=== PATIENT | female | born 1940 | race Caucasian/White ===

== ENCOUNTER 2018-01-15 09:57 | Observation (INO) | payer MEDICARE ==
[~2018-01-15] VITALS: Ht 157.5 cm; Wt 93.0 kg
[~2018-01-15 09:57] MED LIST: GLIMEPIRIDE2 MG PO; LANTUS100 UNITS/ SQ; LISINOPRIL10 MG PO; METOPROLOL SUCC25 MG PO; SYNTHROID112 MCG PO
[2018-01-15 18:12] VITALS: BP 145/72
[2018-01-15] MEDS ORDERED: SYNTHROID112 MCG PO (18:12)
[2018-01-15] MEDS ORDERED: GLIMEPIRIDE4 MG PO (18:12)
[2018-01-15] MEDS ORDERED: LANTUS 3ML100 UNITS/ SC (18:12)
[2018-01-15] MEDS ORDERED: ATROVENT HFA12.9 GM (18:12)
[2018-01-15] MEDS ORDERED: VITAMIN C1000 MG PO (18:12)
[2018-01-15] MEDS ORDERED: METOPROLOL TART25 MG PO (18:12)
[2018-01-15] MEDS ORDERED: LISINOPRIL10 MG PO (18:12)
[2018-01-15] MEDS ORDERED: TOBRAMYCIN IV SCH (19:30)
[2018-01-15] MEDS ORDERED: SODIUM CHLORIDE 0.9% IV SCH (19:30)
[2018-01-15 20:00] VITALS: BP 145/72
[2018-01-15 20:33] VITALS: BP 124/60
[2018-01-15] MEDS ORDERED: NON-FORMULARY MEDICATION (Ascorbic Acid (Vitamin C) 1,000 MG) PO SCH (21:00)
[2018-01-15] MEDS ORDERED: METOPROLOL SUCCINATE 25 MG TAB XL PO SCH (21:00)
[2018-01-15] MEDS ORDERED: ASCORBIC ACID 500 MG TAB PO SCH (21:00)
[2018-01-15] MEDS: METOPROLOL TARTRATE 25 MG TAB PO SCH (21:00)
[2018-01-16] VITALS: BP 106/50
[2018-01-16 04:00] VITALS: BP 115/52
[2018-01-16] MEDS ORDERED: LEVOTHYROXINE SODIUM 112 MCG TAB PO SCH (06:30)
[2018-01-16 07:07] VITALS: BP 135/59
[2018-01-16] MEDS ORDERED: GLIMEPIRIDE 2 MG TAB PO SCH (07:30)
[2018-01-16 07:50] VITALS: BP 135/59
[2018-01-16] MEDS ORDERED: TOBRAMYCIN IV SCH (08:30)
[2018-01-16] MEDS ORDERED: SODIUM CHLORIDE 0.9% IV SCH (08:30)
[2018-01-16] MEDS ORDERED: TOBRAMYCIN 40 MG/ML 2ML VIAL IV SCH (09:00)
[2018-01-16] MEDS: METOPROLOL TARTRATE 25 MG TAB PO SCH (09:00)
[2018-01-16] MEDS ORDERED: LISINOPRIL 10 MG TAB PO SCH (09:00)
[2018-01-16] MEDS ORDERED: IOPAMIDOL 610MG/1ML 300 MG/ML VIAL IV ONE (10:11)
[2018-01-16] MEDS ORDERED: LIDOCAINE JELLY 2% 10ML URO-JET ONE (10:25)
[2018-01-16 12:18] VITALS: BP 118/57
[2018-01-16] MEDS ORDERED: MIDAZOLAM HCL 2 MG/2 ML VIAL ONE (17:31)
[2018-01-16] MEDS ORDERED: FENTANYL CITRATE/PF 100MCG/2 ML INJ ONE (17:31)
--- NOTE | 2018-01-21 15:17 | Operative Report ---
DATE OF PROCEDURE: January 15, 2018 PREOPERATIVE DIAGNOSIS: Recurrent urinary tract infection. POSTOPERATIVE DIAGNOSIS: Recurrent urinary tract infection. OPERATIVE PROCEDURE PERFORMED: Cystoscopy. ANESTHESIA: Local. ESTIMATED BLOOD LOSS: Minimal. INDICATIONS: Ms. Starr Green is a 77-year-old woman with culture-proven recurrent urinary tract infection. She now presents for cystoscopy. She is presently on continued IV antibiotics for her most recent infection, which was a multiresistant organism. PROCEDURE IN DETAIL: The patient was brought into the cystoscopy suite and placed in the dorsal lithotomy position. Cystoscopy was performed using a 21-[place]ian cystoscope. The anterior and posterior urethra were noted to be normal. The patient was noted to have a significant grade 2 to 3 cystocele. Her ureteral orifices were in normal anatomical position and produced clear efflux. She had diverticula noted on both sides of her bladder. Most of these were wide-mouthed. These were individually scoped and found to have no mucosal lesions. The bladder was then drained in its entirety with a small improvement in the size of the cystocele. The cystoscope and sheath were removed. The patient was returned to the supine position. She was transferred to her bed and taken to the postanesthesia care unit in good condition. Of note, the needle and instrument counts were correct at the conclusion of the case. Job#: [id number]
== END 2018-01-16 14:43 | disposition home or self-care (01) ==
LOC: IMCU 16:26 → MED/SURG 20:17
PROVIDERS: ADMIT Urology; ATTEND Urology
DX: N39.0 Urinary tract infection, site not specified (principal); N81.10 Cystocele, unspecified; J45.909 Unspecified asthma, uncomplicated; I10 Essential (primary) hypertension; E11.9 Type 2 diabetes mellitus without complications; E03.9 Hypothyroidism, unspecified; Z85.3 Personal history of malignant neoplasm of breast
CPT/HCPCS: 36415 ×2; 52000; 82948 ×2; G0378 ×2; J2250; J3260; Q9967

== ENCOUNTER 2018-10-29 17:24 | Emergency (ER) | payer MEDICARE ==
[~2018-10-29] VITALS: Ht 157.5 cm; Wt 93.0 kg
[~2018-10-29 17:24] MED LIST changes: +ATROVENT HFA12.9 GM; +GLIMEPIRIDE4 MG PO; +LANTUS 3ML100 UNITS/ SC; +METOPROLOL TART25 MG PO; +VITAMIN C1000 MG PO
--- NOTE | 2018-10-29 18:30 | NUR ---
Pt removed from backboard after conferring with Dr. Queen. No distress noted.
--- NOTE | 2018-10-29 19:01 | Diagnostic Imaging Report ---
History: Fell forward Comparison studies:None Technique: Axial images were obtained from the brain and cervical spine. Coronal and sagittal images reconstructed from the axial data. Intravenous contrast: None Dose modulation, iterative reconstruction, and/or weight based adjustment of the mA/kV was utilized to reduce the radiation dose to as low as reasonably achievable. Findings: Head CT: Scalp/skull: Left frontal scalp hematoma. No fractures, blastic or lytic lesions. Brain sulci: Mildly prominent. Ventricles: Mildly prominent. No hydrocephalus. Extra-axial spaces: No masses. No fluid collections. Parenchyma: Scattered small hypodensities of the periventricular and deep white matter. Small chronic lacunar infarcts at the bilateral caudate head. No masses, hemorrhage, acute or chronic cortical vascular insults. Sellar/suprasellar region: No abnormalities. Craniocervical junction: Patent foramen magnum. No Chiari one malformation. Atherosclerotic calcifications of the carotid siphons. Cervical spine CT: Fractures: None. Soft tissues: No gross abnormalities. Atlantoaxial articulation: No acute abnormality. Alignment: Normal lordosis. No scoliosis. Cervicomedullary junction: No abnormalities. Patent foramen magnum. Vertebrae: No infection or neoplasm. Degenerative changes: At C3-4 bilateral uncinate process hypertrophy results in mild bilateral foraminal narrowing. At C4-5 right uncinate process hypertrophy and right facet hypertrophy results in moderate right foraminal narrowing without significant canal stenosis. At C5-6, bilateral uncinate process hypertrophy and facet hypertrophy results in no significant canal stenosis and severe bilateral foraminal narrowing. At C6-7, bilateral uncinate process hypertrophy and facet hypertrophy results in severe right and moderate left foraminal narrowing. At C7-T1 right uncinate process hypertrophy results in mild right foraminal narrowing without significant canal stenosis. Disc degeneration with decreased intervertebral space from C4 through C7.. Incidental findings: Atherosclerotic calcifications of the carotid bulbs. Impression: Head CT: 1. No acute intracranial abnormality. 2. Left frontal scalp hematoma without underlying fracture. 3. Mild chronic microvascular ischemic changes of the white matter. Moderate volume loss of the left more than right parietal lobes. Mild diffuse volume loss. Cervical spine CT: 1. No acute abnormalities. Degenerative changes as described above 2. Cannot exclude ligament, spinal cord and or vascular abnormalities on the basis of this examination. Signed by: DR Chapincito Weiner M.D. on 10/29/2018 6:58 PM
[2018-10-29] MEDS ORDERED: ACETAMINOPHEN 325 MG TAB PO ONE (19:45)
[2018-10-29 20:17] VITALS: BP 143/83
== END 2018-10-29 20:39 | disposition home or self-care (01) ==
LOC: ER 17:24
DX: S00.83XA Contusion of other part of head, initial encounter (principal); W01.0XXA Fall on same level from slipping, tripping and stumbling without subsequent striking against object, initial encounter; Y93.01 Activity, walking, marching and hiking; Y92.238 Other place in hospital as the place of occurrence of the external cause; E11.9 Type 2 diabetes mellitus without complications; Z85.3 Personal history of malignant neoplasm of breast; Z87.19 Personal history of other diseases of the digestive system
CPT/HCPCS: 70450; 72125; 99283

== ENCOUNTER 2023-10-03 17:33 | Inpatient (IN) | payer MEDICARE ==
[~2023-10-03] VITALS: Ht 157.5 cm; Wt 93.0 kg
[2023-10-03] MEDS ORDERED: SODIUM CHLORIDE 0.9% 1000ML 1,000 ML IV STA ×2 (17:46→18:39)
[2023-10-03 18:35] LABS: BASOPHILS % 0.5 % (0.0-1.0); EOSINOPHILS % 0.3 % (0.0-6.0); HEMATOCRIT 40.6 % (34.2-44.1); LYMPHOCYTES # (AUTO) 1.1 (1.0-3.2); LYMPHOCYTES % 18.6 % (18.0-39.1); MEAN CORPUSCULAR HEMOGLOBIN 27.6 pg (28-32); MEAN CORPUSCULAR VOLUME 86.2 fL (81-99); MONOCYTES # (AUTO) 1.1 (0.2-0.8); MONOCYTES % 18.6 % (4.4-11.3); NEUTROPHILS # (AUTO) 3.8 (2.1-6.9); NEUTROPHILS % 61.5 % (38.7-80.0); PLATELET COUNT 201 x10e3/uL (140-360); RED BLOOD COUNT 4.71 x10e6/uL (3.6-5.1); RED CELL DISTRIBUTION WIDTH 14.9 % (11.7-14.4); WHITE BLOOD COUNT 6.13 x10e3/uL (4.8-10.8)
[2023-10-03] MEDS ORDERED: ACETAMINOPHEN 325 MG TAB PO STA (18:39)
[2023-10-03] MEDS ORDERED: LEVOFLOXACIN 750MG/D5W 150ML 150 ML IV SCH (18:45)
[2023-10-03 18:50] LABS: ALBUMIN 3.5 g/dL (3.5-5.0); ALBUMIN/GLOBULIN RATIO 0.9 (0.8-2.0); ANION GAP 12.9 mmol/L (8-16); BILIRUBIN,TOTAL 0.3 mg/dL (0.2-1.2); CALCIUM 8.3 mg/dL (8.4-10.2); CREATININE, SERUM 0.95 mg/dL (0.57-1.11); POTASSIUM 3.9 mmol/L (3.5-5.1); TOTAL PROTEIN 7.6 g/dL (6.5-8.1); TROPONIN I 0.01 ng/mL (0-0.300)
[2023-10-03 20:39] LABS: CLARITY,URINE HAZY (CLEAR); COLOR,URINE YELLOW (YELLOW)
[2023-10-03 20:40] LABS: BILIRUBIN,URINE NEGATIVE (NEGATIVE); GLUCOSE, URINE NEGATIVE (NEGATIVE); KETONES,URINE 1+ (NEGATIVE); LEUKOCYTE ESTERASE ,URINE SMALL (NEGATIVE); NITRITE,URINE POSITIVE (NEGATIVE); PH,URINE 6 (5 - 7); PROTEIN,URINE DIPSTICK 1+ (NEGATIVE); URINE UROBILINOGEN 0.2 mg/dL (0.2 - 1)
[2023-10-03 20:56] LABS: BACTERIA,URINE MANY /HPF; EPITHELIAL CELLS,URINE FEW /LPF
[2023-10-03] MEDS ORDERED: ONDANSETRON HCL INJ 2MG/ML 2ML 2 MG/ML VIAL IV PRN (21:45)
[2023-10-03] MEDS: SODIUM CHLORIDE 0.9% 1000ML 1,000 ML IV SCH (22:21)
[2023-10-03 23:15] VITALS: PULSE 74; RESP 20; O2SAT 93
[2023-10-04] MEDS ORDERED: CEPACOL SORE THROAT LOZENGES PO ONE (01:30)
[2023-10-04] MEDS ORDERED: CEPACOL SORE THROAT LOZENGES PO PRN (03:15)
[2023-10-04] MEDS: ACETAMINOPHEN 325 MG TAB PO PRN (03:18)
[2023-10-04 03:51] LABS: TROPONIN I 0.024 ng/mL (0-0.300)
[2023-10-04] MEDS ORDERED: ALBUTEROL/IPRATROPIUM 3 ML NEB NEB PRN (05:30)
[2023-10-04] MEDS ORDERED: DEXTROSE 50% SYRINGE 50 ML IV PRN (05:30)
[2023-10-04] MEDS ORDERED: SIMETHICONE 80 MG CHEW PO PRN (05:30)
[2023-10-04] MEDS ORDERED: METOPROLOL TARTRATE INJ 1 MG/ML VIAL IV PRN (05:30)
[2023-10-04] MEDS ORDERED: DOCUSATE SODIUM 100 MG CAP PO PRN (05:30)
[2023-10-04 05:57] LABS: BASOPHILS % 0.4 % (0.0-1.0); EOSINOPHILS # (AUTO) 0.1 (0.0-0.4); EOSINOPHILS % 1.4 % (0.0-6.0); HEMATOCRIT 38.5 % (34.2-44.1); HEMOGLOBIN 12.1 g/dL (12.0-16.0); LYMPHOCYTES # (AUTO) 1.6 (1.0-3.2); LYMPHOCYTES % 28.8 % (18.0-39.1); MEAN CORPUSCULAR HEMOGLOBIN 27.8 pg (28-32); MEAN CORPUSCULAR HGB CONC 31.4 g/dL (31-35); MEAN CORPUSCULAR VOLUME 88.3 fL (81-99); MONOCYTES # (AUTO) 1.4 (0.2-0.8); MONOCYTES % 24.2 % (4.4-11.3); NEUTROPHILS # (AUTO) 2.6 (2.1-6.9); NEUTROPHILS % 44.8 % (38.7-80.0); PLATELET COUNT 163 x10e3/uL (140-360); RED BLOOD COUNT 4.36 x10e6/uL (3.6-5.1); RED CELL DISTRIBUTION WIDTH 14.7 % (11.7-14.4)
[2023-10-04] MEDS: SODIUM CHLORIDE 0.9% 1000ML 1,000 ML IV SCH ×2 (06:13→17:17)
[2023-10-04 06:21] LABS: CHOL/HDL RATIO 4.2 (3.0-3.6)
[2023-10-04] MEDS ORDERED: LEVOTHYROXINE SODIUM 112 MCG TAB PO SCH (06:30)
[2023-10-04 07:06] LABS: ALBUMIN 2.9 g/dL (3.5-5.0); ALBUMIN/GLOBULIN RATIO 0.8 (0.8-2.0); ANION GAP 14.8 mmol/L (8-16); BILIRUBIN,TOTAL 0.2 mg/dL (0.2-1.2); CALCIUM 7.6 mg/dL (8.4-10.2); CREATININE, SERUM 0.77 mg/dL (0.57-1.11); POTASSIUM 3.8 mmol/L (3.5-5.1); TOTAL PROTEIN 6.4 g/dL (6.5-8.1)
[2023-10-04] MEDS: INSULIN REGULAR, HUMAN 100 UNIT/1 ML SQ SCH ×4 (07:30→20:51)
[2023-10-04] MEDS: METOPROLOL SUCCINATE 25 MG TAB XL PO SCH ×3 (08:33→20:38)
[2023-10-04 11:49] LABS: TROPONIN I 0.023 ng/mL (0-0.300)
[2023-10-04 14:33] VITALS: BP 124/60; PULSE 71; RESP 20; O2SAT 96
[2023-10-04 16:00] VITALS: BP 126/64; PULSE 76; RESP 18; TEMP 98; O2SAT 97
[2023-10-04] MEDS: CEFTRIAXONE 2 GM in SODIUM CHLORIDE 0.9% 100 ML IV SCH (17:17)
[2023-10-04] MEDS: ENOXAPARIN SOD INJ 40 MG/0.4 ML SYR SC SCH (17:21)
[2023-10-04 20:00] VITALS: BP 155/57; PULSE 77; RESP 20; TEMP 97.7; O2SAT 96
[2023-10-04] MEDS: ASCORBIC ACID 500 MG TAB PO SCH (20:36)
[2023-10-04] MEDS: MELATONIN 3 MG TAB PO PRN (20:38)
[2023-10-04] MEDS: INSULIN GLARGINE 100 UNITS/ML VIAL SQ SCH (20:44)
[2023-10-05] VITALS (7 sets, daily range): BP systolic 121–143; BP diastolic 54–67; PULSE 68–78; RESP 18–20; TEMP 97.8–98.9; O2SAT 93–98
[2023-10-05] MEDS: SODIUM CHLORIDE 0.9% 1000ML 1,000 ML IV SCH ×3 (02:31→20:15)
[2023-10-05] MEDS: LEVOTHYROXINE SODIUM 100 MCG TAB PO SCH (04:24)
[2023-10-05] MEDS: INSULIN REGULAR, HUMAN 100 UNIT/1 ML SQ SCH ×4 (07:30→20:14)
[2023-10-05 08:40] LABS: BASOPHILS % 0.5 % (0.0-1.0); EOSINOPHILS # (AUTO) 0.1 (0.0-0.4); EOSINOPHILS % 1.8 % (0.0-6.0); HEMATOCRIT 39.4 % (34.2-44.1); HEMOGLOBIN 12.4 g/dL (12.0-16.0); LYMPHOCYTES # (AUTO) 1.9 (1.0-3.2); LYMPHOCYTES % 43.3 % (18.0-39.1); MEAN CORPUSCULAR HEMOGLOBIN 27.8 pg (28-32); MEAN CORPUSCULAR HGB CONC 31.5 g/dL (31-35); MEAN CORPUSCULAR VOLUME 88.3 fL (81-99); MONOCYTES # (AUTO) 0.6 (0.2-0.8); MONOCYTES % 13.8 % (4.4-11.3); NEUTROPHILS # (AUTO) 1.8 (2.1-6.9); NEUTROPHILS % 40.4 % (38.7-80.0); PLATELET COUNT 174 x10e3/uL (140-360); RED BLOOD COUNT 4.46 x10e6/uL (3.6-5.1); RED CELL DISTRIBUTION WIDTH 15.1 % (11.7-14.4); WHITE BLOOD COUNT 4.43 x10e3/uL (4.8-10.8)
[2023-10-05] MEDS: CHOLECALCIFEROL 1,000 UNIT TAB PO SCH ×2 (09:00→10:27)
[2023-10-05 09:02] LABS: TROPONIN I 0.033 ng/mL (0-0.300)
[2023-10-05 09:09] LABS: ANION GAP 13.8 mmol/L (8-16); CALCIUM 7.8 mg/dL (8.4-10.2); CREATININE, SERUM 0.69 mg/dL (0.57-1.11); POTASSIUM 3.8 mmol/L (3.5-5.1)
[2023-10-05] MEDS: ASCORBIC ACID 500 MG TAB PO SCH ×2 (10:27→19:56)
[2023-10-05] MEDS: METOPROLOL SUCCINATE 25 MG TAB XL PO SCH ×3 (10:28→20:14)
[2023-10-05] MEDS: CEFTRIAXONE 2 GM in SODIUM CHLORIDE 0.9% 100 ML IV SCH (17:12)
[2023-10-05] MEDS: ENOXAPARIN SOD INJ 40 MG/0.4 ML SYR SC SCH (17:13)
[2023-10-05] MEDS: MELATONIN 3 MG TAB PO PRN (19:57)
[2023-10-05] MEDS: INSULIN GLARGINE 100 UNITS/ML VIAL SQ SCH (20:13)
[2023-10-06] MEDS: LEVOTHYROXINE SODIUM 100 MCG TAB PO SCH (05:50)
[2023-10-06] MEDS: INSULIN REGULAR, HUMAN 100 UNIT/1 ML SQ SCH ×4 (07:30→21:28)
[2023-10-06] MEDS: SODIUM CHLORIDE 0.9% 1000ML 1,000 ML IV SCH ×2 (07:48→18:12)
[2023-10-06 08:29] VITALS: BP 101/89; PULSE 67; RESP 18; TEMP 97.9; O2SAT 94
[2023-10-06 08:57] VITALS: BP 101/89; PULSE 67; RESP 18; TEMP 97.9; O2SAT 94
[2023-10-06] MEDS: CHOLECALCIFEROL 1,000 UNIT TAB PO SCH (09:00)
[2023-10-06 09:09] LABS: ANION GAP 12.7 mmol/L (8-16); CALCIUM 8.1 mg/dL (8.4-10.2); CREATININE, SERUM 0.63 mg/dL (0.57-1.11); POTASSIUM 3.7 mmol/L (3.5-5.1)
[2023-10-06 09:29] LABS: BASOPHILS % 0.8 % (0.0-1.0); EOSINOPHILS # (AUTO) 0.1 (0.0-0.4); EOSINOPHILS % 3.1 % (0.0-6.0); HEMATOCRIT 40.6 % (34.2-44.1); HEMOGLOBIN 12.6 g/dL (12.0-16.0); LYMPHOCYTES # (AUTO) 1.8 (1.0-3.2); LYMPHOCYTES % 45.7 % (18.0-39.1); MEAN CORPUSCULAR HEMOGLOBIN 27.8 pg (28-32); MEAN CORPUSCULAR VOLUME 89.4 fL (81-99); MONOCYTES # (AUTO) 0.6 (0.2-0.8); MONOCYTES % 15.2 % (4.4-11.3); NEUTROPHILS # (AUTO) 1.4 (2.1-6.9); NEUTROPHILS % 34.9 % (38.7-80.0); PLATELET COUNT 171 x10e3/uL (140-360); RED BLOOD COUNT 4.54 x10e6/uL (3.6-5.1); RED CELL DISTRIBUTION WIDTH 15.4 % (11.7-14.4); WHITE BLOOD COUNT 3.87 x10e3/uL (4.8-10.8)
[2023-10-06] MEDS: METOPROLOL SUCCINATE 25 MG TAB XL PO SCH ×3 (10:55→21:24)
[2023-10-06] MEDS: ASCORBIC ACID 500 MG TAB PO SCH ×2 (10:55→21:25)
[2023-10-06 12:32] VITALS: BP 111/59; PULSE 68; RESP 20; TEMP 98.1; O2SAT 98
[2023-10-06] MEDS: CEFTRIAXONE 2 GM in SODIUM CHLORIDE 0.9% 100 ML IV SCH (15:31)
[2023-10-06 16:18] VITALS: BP 138/62; PULSE 66; RESP 20; TEMP 97.7; O2SAT 97
[2023-10-06] MEDS: ENOXAPARIN SOD INJ 40 MG/0.4 ML SYR SC SCH (18:12)
[2023-10-06] MEDS: ACETAMINOPHEN 325 MG TAB PO PRN (21:25)
[2023-10-06] MEDS: INSULIN GLARGINE 100 UNITS/ML VIAL SQ SCH (21:27)
[2023-10-06 23:00] VITALS: BP 135/60; PULSE 66; RESP 18; TEMP 98.5
[2023-10-07] VITALS (8 sets, daily range): BP systolic 125–146; BP diastolic 54–68; PULSE 63–75; RESP 18–22; TEMP 98.2–98.6; O2SAT 97–98
[2023-10-07] MEDS: SODIUM CHLORIDE 0.9% 1000ML 1,000 ML IV SCH ×3 (03:00→21:22)
[2023-10-07] MEDS: INSULIN REGULAR, HUMAN 100 UNIT/1 ML SQ SCH ×4 (07:30→21:00)
[2023-10-07] MEDS: CHOLECALCIFEROL 1,000 UNIT TAB PO SCH (09:43)
[2023-10-07] MEDS: METOPROLOL SUCCINATE 25 MG TAB XL PO SCH ×4 (09:43→21:18)
[2023-10-07] MEDS: ASCORBIC ACID 500 MG TAB PO SCH ×2 (09:43→21:18)
[2023-10-07] MEDS: LEVOTHYROXINE SODIUM 100 MCG TAB PO SCH (09:44)
[2023-10-07] MEDS ORDERED: ONDANSETRON HCL 4 MG ORAL DISINTEGRATING TAB PO PRN (14:15)
[2023-10-07] MEDS: CEFTRIAXONE 2 GM in SODIUM CHLORIDE 0.9% 100 ML IV SCH (14:40)
[2023-10-07] MEDS: ENOXAPARIN SOD INJ 40 MG/0.4 ML SYR SC SCH (17:21)
[2023-10-07] MEDS: INSULIN GLARGINE 100 UNITS/ML VIAL SQ SCH (21:27)
[2023-10-08] VITALS: BP 139/59; PULSE 64; RESP 18; TEMP 98.6; O2SAT 100
[2023-10-08 04:00] VITALS: BP 150/62; PULSE 68; RESP 18; TEMP 98.1; O2SAT 100
[2023-10-08] MEDS: LEVOTHYROXINE SODIUM 100 MCG TAB PO SCH (06:11)
[2023-10-08] MEDS: INSULIN REGULAR, HUMAN 100 UNIT/1 ML SQ SCH ×3 (07:30→16:30)
[2023-10-08] MEDS: SODIUM CHLORIDE 0.9% 1000ML 1,000 ML IV SCH (08:08)
[2023-10-08] MEDS: CHOLECALCIFEROL 1,000 UNIT TAB PO SCH (09:00)
[2023-10-08] MEDS ORDERED: Cholecalciferol PO (10:24)
[2023-10-08] MEDS ORDERED: ASCORBIC ACID500 MG PO (10:24)
[2023-10-08] MEDS ORDERED: CEPHALEXIN500 MG PO (10:26)
[2023-10-08] MEDS: METOPROLOL SUCCINATE 25 MG TAB XL PO SCH ×2 (11:15→15:00)
[2023-10-08] MEDS: ASCORBIC ACID 500 MG TAB PO SCH (11:15)
[2023-10-08 12:24] VITALS: BP 150/72; PULSE 68; RESP 18; TEMP 98.1; O2SAT 100
[2023-10-08] MEDS: CEFTRIAXONE 2 GM in SODIUM CHLORIDE 0.9% 100 ML IV SCH (15:00)
[2023-10-08 16:03] VITALS: BP 150/72; PULSE 73; RESP 18; TEMP 98.1; O2SAT 100
[2023-10-08] MEDS: ENOXAPARIN SOD INJ 40 MG/0.4 ML SYR SC SCH (17:00)
== END 2023-10-08 19:30 | disposition home or self-care (01) | DRG 871 ==
LOC: ER 17:39 → ERHOLD 21:43 → MED/SURG3 10-04 14:10
PROVIDERS: ADMIT Internal Medicine; ATTEND Internal Medicine
DX: A41.89 Other specified sepsis (principal); U07.1 COVID-19; N39.0 Urinary tract infection, site not specified; E87.1 Hypo-osmolality and hyponatremia; M62.82 Rhabdomyolysis; J20.8 Acute bronchitis due to other specified organisms; B96.20 Unspecified Escherichia coli [E. coli] as the cause of diseases classified elsewhere; R51.9 Headache, unspecified; E11.9 Type 2 diabetes mellitus without complications; R65.20 Severe sepsis without septic shock; M19.90 Unspecified osteoarthritis, unspecified site; F03.90 Unspecified dementia, unspecified severity, without behavioral disturbance, psychotic disturbance, mood disturbance, and anxiety; R41.82 Altered mental status, unspecified; I10 Essential (primary) hypertension; E03.9 Hypothyroidism, unspecified; Z85.3 Personal history of malignant neoplasm of breast; Z90.12 Acquired absence of left breast and nipple; Z92.21 Personal history of antineoplastic chemotherapy; Z87.11 Personal history of peptic ulcer disease; Z20.822 Contact with and (suspected) exposure to COVID-19
CPT/HCPCS: 36415; 70450; 71045; 80048; 80053; 80061; 81001; 82550; 82948; 83036; 83605; 83880; 84484; 85025; 87040; 87086; 87186; 87400; 93005; 94799; 96372; 99284; J0696; J1650; J1815; J7030; J7050; U0002